=== PATIENT | male | born 1945 | race Caucasian/White ===

== ENCOUNTER 2025-04-09 09:44 | Emergency (ER) | payer OTHER ==
[~2025-04-09] VITALS: Ht 172.7 cm; Wt 82.0 kg
--- NOTE | 2025-04-09 10:24 | ED.PDOC ---
HPI Comments This is an 80-year-old male with past medical history of coronary artery disease (status post PCI, 2 stents in 2005), stroke (status post left carotid artery angioplasty), diabetes type 2, hypertension, dyslipidemia brought to the hospital by EMS due to epigastric pain. Pain started while he was sitting, describes pain as aching pain, radiating to substernal area, , 7/10 in intensity, lasted for 5 minutes and improved with taking 1 nitroglycerin tablet. He also reports of profuse sweating. After taking NG tablet upon standing, felt dizzy and fell but did not hit his head. He denies fever, cough, shortness of breaths, loss of consciousness or any recent sick contact. Upon calling 911, he was advised to take four baby aspirin. Per EMS report, upon picking him up from home he was pain-free and had no symptoms. Pain returned while the ER and relieved again by Nitro. Chief Complaint: Chest Pain Time Seen by MD: 10:09 Reviewed Notes: [employer] Lead Notes, Medications Allergies: Coded Allergies: NO KNOWN ALLERGIES (Unverified , 04/09/25) Information Source: Patient Mode of Arrival: EMS Severity: Moderate Timing: Minutes Duration: Minutes Prehospital treatment: 12 Lead EKG, ASA, NTG Location: Substernal Quality: Aching Onset: At Rest Cardiac Risk Factors: Smoker, Hyperlipidemia, HTN, Diabetes PE Risk Factors: None History of: UT, Aspirin Modifying Factors: Other Associated Signs and Symptoms: Diaphoresis Past Medical History PAST MEDICAL HISTORY: CAD, CVA, DM, High Lipids, HTN Surgical History (Other): Left carotid artery angioplasty, status post stent placement Family History Family History: Family hx of DM Social History Smoker: Other (Ex-smoker with 50 pack year history) Alcohol: Denies ETOH Use Drugs: Denies Drug Use Lives In: Home Constitutional: reports: diaphoresis; denies: chills, fatigue, fever, malaise, sweats, weakness, others EENTM: denies: blurred vision, double vision, ear bleeding, ear discharge, ear drainage, ear pain, ear ringing, eye pain, eye redness, hearing loss, mouth pain, mouth swelling, nasal discharge, nose bleeding, nose congestion, nose pain, photophobia, tearing, throat pain, throat swelling, voice changes, others Respiratory: denies: cough, hemoptysis, orthopnea, SOB at rest, shortness of breath, SOB with excertion, stridor, wheezing, others Cardiovascular: reports: chest pain; denies: dizzy spells, diaphoresis, Dyspnea on exertion, edema, irregular heart beat, left arm pain, lightheadedness, palpitations, PND, syncope, others Gastrointestinal: denies: abdomen distended, abdominal pain, blood streaked bowels, constipated, diarrhea, dysphagia, difficulty swallowing, hematemesis, melena, nausea, poor appetite, poor fluid intake, rectal bleeding, rectal pain, vomiting, others Genitourinary: denies: burning, dysuria, flank pain, frequency, hematuria, incontinence, penile discharge, penile sore, pain, testicle pain, testicle swelling, urgency, others Neurological: denies: dizziness, fainting, headache, left sided numbness, left sided weakness, numbness, paresthesia, pre-existing deficit, right sided numbness, right sided weakness, seizure, speech problems, tingling, tremors, we akness, others Musculoskeletal: denies: back pain, gout, joint pain, joint swelling, muscle pain, muscle stiffness, neck pain, others Integumetry: denies: bruises, change in color, change in hair/nails, dryness, laceration, lesions, lumps, rash, wounds, others Allergic/Immunocompromised: denies: Difficulty Healing, Frequent Infections, Hives, Itching, others Hematologic/Lymphatic: denies: anemia, blood clots, easy bleeding, easy bruising, swollen glands, others Endocrine: denies: excessive hunger, excessive sweating, excessive thirst, excessive urination, flushing, intolerance to cold, intolerance to heat, unexplained weight gain, unexplained weight loss, others Psychiatric: denies: anxiety, bipolar disorder, depression, hopeless, panic disorder, schizophrenia, sleepless, suicidal, others Physical Exam General Appearance: No Apparent Distress, Normal HEENT: Normal ENT Inspection, Pharynx Normal, TMs Normal Neck: Full Range of Motion, Non-Tender, Normal, Normal Inspection Respiratory: Chest Non-Tender, Lungs Clear, No Accessory Muscle Use, No Respiratory Distress, Normal Breath Sounds Cardiovascular: No Edema, No JVD, No Murmur, No Gallop, Normal Peripheral Pulses, Regular Rate/Rhythm Breast Exam: Deferred Gastrointestinal: No Organomegaly, Non Tender, No Pulsatile Mass, Normal Bowel Sounds, Soft Genitalia: Deferred Pelvic: Deferred Rectal: Deferred Extremities: No calf tenderness, Normal capillary refill, Normal inspection, Normal range of motion, Non-tender, No pedal edema Neurologic: Alert, patient access registrar II-XII nml as Tested, No Motor Deficits, Normal Affect, Normal Mood, No Sensory Deficits Cerebellar Function: Normal Reflexes: Normal Skin: Dry, Normal Color, Warm Lymphatic: No Adenopathy EKG EKG : Comments Sinus rhythm with no significant ST or T-wave changes Was a procedure done? Was a procedure done?: No CP Differential Dx Differential Diagnosis: Angina, Anxiety / Panic Attack, Heart Failure, UT X-Ray, Labs, Meds, VS Vital Signs Date Time Temp Pulse Resp B/P (MAP) Pulse Ox O2 Delivery O2 Flow Rate FiO2 04/09/25 12:47 57 04/09/25 11:19 154/53 04/09/25 11:18 65 154/53 04/09/25 11:15 58 04/09/25 10:46 98.1 65 16 154/53 (86) 99 98.1 04/09/25 10:46 65 16 99 Room Air* 0 21 04/09/25 09:53 97.9 60 18 148/72 98 97.9 04/09/25 09:49 60 Lab Test 04/09/25 12:43 04/09/25 10:16 Range/Units Troponin I High Sensitivity 5 5 </=54 ng/L White Blood Count 6.5 4.4-10.8 10^3/uL Red Blood Count 4.57 4.5-5.90 10^6/uL Hemoglobin 13.9 13.5-17.5 g/dL Hematocrit 40.0 L 41.0-53.0 % Mean Corpuscular Volume 87.5 80.0-100.0 fL Mean Corpuscular Hemoglobin 30.4 28.0-32.0 pg Mean Corpuscular Hemoglobin Concent 34.7 32.0-36.0 g/dL Red Cell Distribution Width 13.4 11.8-14.3 % Platelet Count 181 140-450 10^3/uL Mean Platelet Volume 7.3 6.9-10.8 fL Neutrophils (%) (Auto) 72.2 37.0-80.0 % Lymphocytes (%) (Auto) 20.1 10.0-50.0 % Monocytes (%) (Auto) 6.3 0.0-12.0 % Eosinophils (%) (Auto) 1.1 0.0-7.0 % Basophils (%) (Auto) 0.3 0.0-2.0 % Neutrophils # (Auto) 4.7 1.6-8.6 10 ^3/uL Lymphocytes # (Auto) 1.3 0.4-5.4 10 ^3/uL Monocytes # (Auto) 0.4 0-1.3 10 ^3/uL Eosinophils # (Auto) 0.1 0-0.8 10 ^3/uL Basophils # (Auto) 0 0-0.2 10 ^3/uL Nucleated Red Blood Cells 0.0 % Sodium Level 142 136-145 mmol/L Potassium Level 5.3 H 3.5-5.1 mmol/L Chloride Level 105 98-107 mmol/L Carbon Dioxide Level 29 20-31 mmol/L Anion Gap 8 5-15 Blood Urea Nitrogen 19 9-23 mg/dL Creatinine 1.49 H 0.700-1.30 mg/dL Glomerular Filtration Rate Calc 47 >90 mL/min BUN/Creatinine Ratio 12.8 10.0-20.0 Serum Glucose 200 H 74-106 mg/dL Calcium Level 9.6 8.7-10.4 mg/dL Magnesium Level 2.0 1.6-2.6 mg/dL Total Bilirubin 0.7 0.2-1.0 mg/dL Aspartate Amino Transferase (AST) 48 H 13-40 U/L Alanine Aminotransferase (ALT) 47 H 7-40 U/L Alkaline Phosphatase 80 46-116 U/L Total Protein 6.7 5.7-8.2 g/dL Albumin 4.7 3.2-4.8 g/dL Current Medications Medications (Trade) Dose Ordered Sig/Blanca Route Start Time Stop Time Status Last Admin Lisinopril (Zestril Tablet) 20 mg ONCE ONCE PO 04/09/25 10:15 04/09/25 10:16 DC 04/09/25 11:19 Metoprolol Tartrate (Lopressor Tablet) 25 mg ONCE ONCE PO 04/09/25 10:15 04/09/25 10:16 DC 04/09/25 11:18 Atorvastatin Calcium (Lipitor) 80 mg ONCE ONCE PO 04/09/25 10:15 04/09/25 10:16 DC 04/09/25 11:17 Calcium Gluconate/ Sodium Chloride 50 ml @ 100 mls/hr ONCE ONCE IV 04/09/25 11:15 04/09/25 11:44 DC 04/09/25 13:17 Time of 1ST Reevaluation: 11:00 Reevaluation 1ST: Unchanged Time of 2ND Reevaluation: 11:20 Reevaluation 2ND: Improved Patient Education/Counseling: Diagnosis, Treatment, Prognosis, Need For Follow Up Family Education/Counseling: No Family Present Comments Patient was brought by EMS due to chest pain and profuse sweating. Pain had improved with taking sublingual nitroglycerin Patient had taken 4 baby aspirin at home Serial EKGs showed normal sinus rhythm with no ST or T-wave changes Troponin within normal limits Potassium was raised at 5.3, and 1 g of calcium is given Serum creatinine is raised at 1.49, baseline record is not available In ER, patient is given home meds metoprolol, lisinopril and atorvastatin Considering patient's previous cardiac history, multiple CAD risk factor, and current presentation patient will be admitted in hospital for inpatient care, for further ischemic workup and possible cardiology evaluation. SEPSIS Sepsis Screen Date sepsis recognized/suspect: Apr 09, 2025 Time Sepsis recognized/suspect: 940 Recent Procedure: No On Antibiotic Therapy: No Respiratory Rate >20: No Heart Rate >90: No Temp<36 C (96.8 F) or >38.3 C: No SBP <90 or MAP <65 mmHG: No New Acute Mental Status Change: No Is the patient on CPAP, BIPAP,: No Physician Orders Chest Portable (04/09/25 09:52) Electrocardigram (04/09/25 09:47) Troponin-I Hs (04/09/25 12:47) Electrocardigram (04/09/25 10:47) Electrocardigram (04/09/25 12:47) Ondansetron Hcl (Zofran) (04/09/25 10:15) Nitroglycerin Sublingual (Ntrostat Subli (04/09/25 10:15) Lipase (04/09/25 13:24) Vital Signs Date Time Temp Pulse Resp B/P (MAP) Pulse Ox O2 Delivery O2 Flow Rate FiO2 04/09/25 12:47 57 04/09/25 11:19 154/53 04/09/25 11:18 65 154/53 04/09/25 11:15 58 04/09/25 10:46 98.1 65 16 154/53 (86) 99 98.1 04/09/25 10:46 65 16 99 Room Air* 0 21 04/09/25 09:53 97.9 60 18 148/72 98 97.9 04/09/25 09:49 60 Laboratory Tests Test 04/09/25 10:16 White Blood Count 6.5 10^3/uL (4.4-10.8) Medications Medications Dose Ordered Sig/Blanca Route Start Time Stop Time Status Last Admin Dose Admin Atorvastatin Calcium 80 mg ONCE ONCE PO 04/09/25 10:15 04/09/25 10:16 DC 04/09/25 11:17 Calcium Gluconate/ Sodium Chloride 50 ml @ 100 mls/hr ONCE ONCE IV 04/09/25 11:15 04/09/25 11:44 DC 04/09/25 13:17 Lisinopril 20 mg ONCE ONCE PO 04/09/25 10:15 04/09/25 10:16 DC 04/09/25 11:19 Metoprolol Tartrate 25 mg ONCE ONCE PO 04/09/25 10:15 04/09/25 10:16 DC 04/09/25 11:18 Departure 1 Departure Time of Disposition: 13:27 (Elwin Authorization: [id number] presented with chest pain that was concerning for possible STEMI, ACS, PE, Pneumonia, Muscle Strain, COPD, Dissection. Data: 1. I ordered and reviewed the result of at least 3 labs including a CBC, BMP, and Troponin. 2. I independently interpreted the following tests: EKG which shows NSR and Chest X-ray which shows benign chest.Risk:This patient has a high risk of morbidity due to further diagnostic testing or treatment and may suffer from an acute cardiac or respiratory disorder. Workup reveals concern for ACS and patient should be admitted for further workup and possible expert consultation. ) Impression: Primary Impression: Chest pain Qualified Codes: R07.9 - Chest pain, unspecified Additional Impression: Unstable angina Disposition: 02 SHORT TERM HOSPITAL Condition: Guarded Critical Care Note Critical Care Time?: Yes Critical care comment: Acute Chest Pain Authorized and Performed by: Jonathan Burgos MD Total critical care time: Approximately 38 minutes Due to a high probability of clinically significant, life threatening deterioration, the patient required my highest level of preparedness to intervene emergently and I personally spent this critical care time directly and personally managing the patient. This critical care time included obtaining a history; examining the patient; pulse oximetry; ordering and review of studies; arranging urgent treatment with development of a management plan; evaluation of patient's response to treatment; frequent reassessment; and, discussions with other providers. This critical care time was performed to assess and manage the high probability of imminent, life-threatening deterioration that could result in multi-organ failure. It was exclusive of separately billable procedures and treating other patients and teaching time. Please see my other sections and the rest of the note for further information on patient assessment and treatment. Stability Stability form required: No Heart Score Heart Score: Heart Score Response (Comments) Value History Highly Suspicious 2 EKG Normal 0 Age >65 2 Risk Factors >3 or Hx ASHD 2 Troponin Normal limit 0 Total 6 ELENA BELTRAN RESDIENT Apr 09, 2025 10:24 JONATHAN BURGOS MD Apr 09, 2025 13:28
[2025-04-09 10:38] LABS: Hematocrit 40.0 % (41.0-53.0); Hemoglobin 13.9 g/dL (13.5-17.5); Mean Corpuscular Hemoglobin 30.4 pg (28.0-32.0); Mean Corpuscular Volume 87.5 fL (80.0-100.0); Nucleated Red Blood Cells % 0.0 %
--- NOTE | 2025-04-09 10:39 | DVH ---
CHEST RADIOGRAPH Indication: cp Technique: Single frontal view of the chest was obtained COMPARISON: None FINDINGS: Lines and Tubes: None Lungs: Clear Pleura: No effusion. No pneumothorax. Cardiomediastinal contours: Unremarkable Bones: Unremarkable IMPRESSION: No acute disease.
[2025-04-09 10:46] VITALS: PULSE 65; RESP 16; O2SAT 99
[2025-04-09 10:52] LABS: Albumin 4.7 g/dL (3.2-4.8); Alkaline Phosphatase 80 U/L (46-116); Anion Gap 8 (5-15); BUN/Creatinine Ratio 12.8 (10.0-20.0); Blood Urea Nitrogen 19 mg/dL (9-23); Calcium 9.6 mg/dL (8.7-10.4); Carbon Dioxide 29 mmol/L (20-31); Chloride 105 mmol/L (98-107); Sodium 142 mmol/L (136-145); Total Protein 6.7 g/dL (5.7-8.2)
[2025-04-09 10:53] LABS: Alanine Aminotransferase 47 U/L (7-40); Bilirubin, Total 0.7 mg/dL (0.2-1.0); Glucose 200 mg/dL (74-106); Potassium 5.3 mmol/L (3.5-5.1)
[2025-04-09] MEDS: ATORVASTATIN 20 MG TAB PO ONE (11:17)
[2025-04-09] MEDS: METOPROLOL TARTRATE 25 MG TAB PO ONE (11:18)
[2025-04-09] MEDS: LISINOPRIL 20 MG TAB PO ONE (11:19)
[2025-04-09] MEDS: ONDANSETRON HCL 4 MG/2 ML VIAL IV PRN (11:25)
[2025-04-09] MEDS: NITROGLYCERIN 0.4 MG SL TAB SL PRN (11:26)
[2025-04-09] MEDS: CALCIUM GLUC 1,000mg/50ml-NS 50 ML IV ONE (13:17)
[2025-04-09 15:30] VITALS: BP 159/63; PULSE 53; RESP 16; TEMP 98.3; O2SAT 99
--- NOTE | 2025-04-10 10:49 | ECG ---
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
--- NOTE | 2025-04-10 23:25 | ECG ---
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
--- NOTE | 2025-04-23 14:01 | ECG ---
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
== END 2025-04-09 15:40 | disposition short-term general hospital (02) ==
LOC: ER 09:44 → EDBD 09:44 → ER 15:40
DX: R07.89 Other chest pain (principal); I25.110 Atherosclerotic heart disease of native coronary artery with unstable angina pectoris; F17.210 Nicotine dependence, cigarettes, uncomplicated; E78.5 Hyperlipidemia, unspecified; E11.9 Type 2 diabetes mellitus without complications; I10 Essential (primary) hypertension; Z95.5 Presence of coronary angioplasty implant and graft; Z88.6 Allergy status to analgesic agent; Z86.73 Personal history of transient ischemic attack (TIA), and cerebral infarction without residual deficits
CPT/HCPCS: 36415; 71045; 80053; 83690; 83735; 84484; 85025; 93005; 96365; 99285; J0613